=== PATIENT | male | born 1995 | race Caucasian/White ===

== ENCOUNTER → 2022-10-29 | Outpatient (CLI) | payer SELFPAY ==
--- NOTE | 2022-10-29 15:41 | CT_ITS ---
CT of the left wrist without contrast INDICATION: Fall from roof Technique: CT of the left wrist was performed in axial projection without contrast followed by sagittal and coronal reconstructions radiographic technique was optimized to limit patient radiation dose. DLP was 548.31 FINDINGS: There is an acute impacted comminuted intra-articular fracture of the distal radius with overlapping and mild volar angulation of fracture fragments. The radiocarpal joint is intact. There is also an acute comminuted avulsion fracture of the ulnar styloid with mild separation of fracture fragments. There is also a comminuted fracture of the pisiform without separation of fracture fragments. CT/Extremity Upper without Contra IMPRESSION: Acute impacted comminuted mildly angulated intra-articular fracture of the distal radial shaft. Acute comminuted mildly displaced fracture of the ulnar styloid and acute comminuted fracture of the pisiform without appreciable separation of fracture fragments Electronically Signed: Eladio Stewart MD at 16:47 EDT ,
== END | disposition home or self-care (01) ==
LOC: CT 15:39
PROVIDERS: Referring Provider Student in an Organized Health Care Education/Training Program; Visit Provider Student in an Organized Health Care Education/Training Program
DX: S52.502A Unspecified fracture of the lower end of left radius, initial encounter for closed fracture (principal); X58.XXXA Exposure to other specified factors, initial encounter
CPT/HCPCS: 73200